=== PATIENT | female | born 1985 ===

== ENCOUNTER 2021-02-14 10:20 | Day surgery (SDC) | payer OTHER | END 2021-02-14 13:35 | disposition home or self-care (01) | LOC: AMB-ENDOS 10:20 | PROVIDERS: ATTEND Colon & Rectal Surgery | DX: K63.5 Polyp of colon (principal); K64.8 Other hemorrhoids; Z20.822 Contact with and (suspected) exposure to COVID-19; Z12.11 Encounter for screening for malignant neoplasm of colon ==